=== PATIENT | male | born 1960 | race Two or more races ===

== ENCOUNTER 2024-10-08 11:47 | Emergency (ER) | payer SELFPAY ==
--- NOTE | 2024-10-08 12:00 | ED.PDOC ---
CPR-HPI HPI Comments This is a 64 year old male BELEM presenting to the ED with chief complaint of cardiac arrest. EMS reports that the patient was last seen well at home by family at 10am, going to take a shower at that time. EMS relays that the family heard the shower running for almost an hour and when checking on the patient, the patient was unresponsive on the ground of the bathroom. EMS states that when they arrived, patient was asystole and they got limited history from family, only of HTN and previous CVA. EMS notes that the patient was intubated, given 6 doses of Epinephrine, NS, Calcium, and D10. EMS reports patient was asystole throughout. EMS denies any further history at this time. Time Seen by MD: 11:45 Reviewed Notes: Nurses Notes, Sign Board Erector Notes, Medications, Allergies Allergies: Coded Allergies: UNOBTAINABLE (Unverified , 10/08/24) Information Source: Emergency Med Personnel Mode of Arrival: EMS Timing: Hours Duration: Down time prior EMS: (1 hour), Total time prior hopital: (1 hour 30 minutes) Onset: At rest Available Hx: Unknown Inital rhythm: Asystole Treatment: CPR, Intubation, IV, Epinephrine Response: No response Past Medical History PAST MEDICAL HISTORY: CVA, HTN Surgical History: Unknown Family History Family History: Reviewed,noncontributory to illness Social History Smoker: Unknown Alcohol: Unknown Drugs: Unknown Lives In: Home Unable to Obtain due to: Medical Urgency, Intubated All Other Systems: Reviewed and Negative Physical Exam General Appearance: Severe Distress HEENT: Other (Pupils fixed dilated) Neck: NOT DONE Respiratory: Respiratory Distress, Other (Came in intubated) Cardiovascular: Other (No pulse) Breast Exam: Deferred Gastrointestinal: Soft Genitalia: Deferred Pelvic: Deferred Rectal: Deferred Extremities: NOT DONE Neurologic: Other (Unconscious) Cerebellar Function: NOT DONE Reflexes: NOT DONE Skin: Pallor Peripheral Pulses: 0 Radial (R), 0 Radial (L) Lymphatic: NOT DONE Was a procedure done? Was a procedure done?: No Differential Dx CPR Differential Diagnosis: Cardiopulmonary arrest, Heart Block, Myocardial Infarction X-Ray, Labs, Meds, VS Vital Signs Date Time Temp Pulse Resp B/P (MAP) Pulse Ox O2 Delivery O2 Flow Rate FiO2 10/08/24 12:41 0 10/08/24 12:40 0 10/08/24 12:03 Room Air* 0 21 Patient unconscious. CPR in progress. ACLS drugs. Long downtime. Has been more than 90 minute since CPR started. Flat line. Spoke with the team. Had to pronounce. Informed the family. Time of 1ST Reevaluation: 11:54 Reevaluation 1ST: N/A Patient Education/Counseling: Pt Unresponsive Family Education/Counseling: No Family Present SEPSIS Sepsis Screen Vital Signs Date Time Temp Pulse Resp B/P (MAP) Pulse Ox O2 Delivery O2 Flow Rate FiO2 10/08/24 12:41 0 10/08/24 12:40 0 10/08/24 12:03 Room Air* 0 21 Departure 1 Departure Time of Disposition: 17:26 Impression: Primary Impression: Cardiac arrest Disposition: 20 Condition: Other Critical Care Note Critical Care Time?: Yes (45 min-critical care time only) Heart Score Heart Score: Heart Score Response (Comments) Value History N/A 0 EKG N/A 0 Age N/A 0 Risk Factors N/A 0 Troponin N/A 0 Total 0 Stability Stability form required: No I personally scribed for HALEIGH LEPE MD ([email or web address]) on 10/08/24 at 12:00. Electronically submitted by Franc Tomlin ([email or web address]). HALEIGH LEPE MD Oct 08, 2024 12:00
--- NOTE | 2024-10-08 12:40 | RESUS ---
CODE MIKAYLA ASSESSSMENT History of Events History of Events: SECURED CODE MIKAYLA ARRIVED AT 1147 WITH I/O TO RIGHT LOWER EXTREMITY, ETT IN PLACE, AND AUTOMATIC COMPRESSION DEVICE. Initial Information Date: Oct 08, 2024 Time: 11:47 Location of Arrest: AT HOME Arrest Witnessed: No CPR started by whom: EMS Pre-Hospital Care: ACLS Type of arrest: Cardiac, Adult, Unwitnessed Spontaneous Respirations: No Pulse Present: No Monitoring: ECG Airway Ventilation Breathing at Onset: Assisted Artificial Ventilation: Bag/Endo tube Confirmation: Auscultation, Exhaled CO2 Comments: INTUBATED BY EMS Circulation Circulation #1: Time: 11:50 Pulse Rate (adult): 0 Blood Pressure Systolic: 0 Blood Pressure Diastolic: 0 Circulation Comment: [place] Circulation #2: Time: 11:52 Pulse Rate (adult): 0 Blood Pressure Systolic: 0 Blood Pressure Diastolic: 0 Circulation Comment: [place] Circulation #3: Time: 11:54 Pulse Rate (adult): 0 Blood Pressure Systolic: 0 Blood Pressure Diastolic: 0 Circulation Comment: TOD Procedure - IV Procedure - IV : IV start time: 11:52 IV Side: Left IV Location: External Jugular Medications & Response Medications and Responses #1: Medication Time: 11:49 ADULT Medications Given ADULT: Epinephrine 1 mg, Sodium Bacarbinate 50 meq Route of Administration: IO EKG Rhythm: Asystole Medications and Responses #2: Medication Time: 11:53 ADULT Medications Given ADULT: Epinephrine 1 mg Route of Administration: IV Nurses Notes Melvin Coma Scale Eye Opening: None (1) [place] Coma Scale Verbal: None (1) [place] Coma Scale Motor: None (1) Pupil Reaction: Non Reactive Bedside Blood Glucose: 140 Nurses Notes - Comment: PUPILS FIXED/DILATED Time Code Ended Time Code Ended: 11:54 Post Arrest Status: Outcome of code: Unsuccessful Patient pronounced by: DR LEPE Time patient pronounced: 11:54 Code Team Present: MERCY CAMEJO RN HOUSE SUPERVISOR, DEN Mann RN CHARGE, ELLIOTT Corcoran RN, CITLALLI Cronin RN, KYLEE SPICER, Forrest ANDREA Robin R Oct 08, 2024 12:40
== END 2024-10-08 11:54 ==
LOC: ER 11:47 → EDBD 11:47 → ER 11:54
DX: I46.9 Cardiac arrest, cause unspecified (principal); I10 Essential (primary) hypertension; Z86.73 Personal history of transient ischemic attack (TIA), and cerebral infarction without residual deficits; Z79.899 Other long term (current) drug therapy
CPT/HCPCS: 82947; 92950